=== PATIENT | female | born 2000 | race Caucasian/White ===

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

== ENCOUNTER 2020-11-27 00:44 | Observation (INO) | payer MEDICAID ==
[~2020-11-27] VITALS: Ht 160 cm; Wt 77.6 kg
[2020-11-27] MEDS ORDERED: PREN-118 PO (01:29)
[2020-11-27] MEDS ORDERED: FERR325T6 PO (01:29)
== END 2020-11-27 07:53 | disposition home or self-care (01) ==
LOC: 8 EST LDRP 00:44
PROVIDERS: ADMIT Obstetrics & Gynecology; ATTEND Obstetrics & Gynecology
DX: O26.893 Other specified pregnancy related conditions, third trimester (principal); R10.2 Pelvic and perineal pain; Z3A.39 39 weeks gestation of pregnancy
CPT/HCPCS: 59025; 76815; 76818; 99281; G0378

== ENCOUNTER 2021-06-17 16:36 | Emergency (ER) | payer MEDICAID ==
[~2021-06-17 16:36] MED LIST: FERR325T6 PO; IBUP-2030 PO; PREN-118 PO
== END 2021-06-17 17:37 | disposition left against medical advice (07) ==
LOC: ER 16:36
DX: J11.1 Influenza due to unidentified influenza virus with other respiratory manifestations (principal); Z53.21 Procedure and treatment not carried out due to patient leaving prior to being seen by health care provider

== ENCOUNTER 2024-01-24 06:40 | Emergency (ER) | payer MEDICAID ==
[~2024-01-24] VITALS: Ht 160 cm; Wt 78.0 kg
[2024-01-24 06:46] VITALS: BP 137/97; PULSE 121; RESP 18; TEMP 98.5; O2SAT 99
[2024-01-24] MEDS ORDERED: IBUPROFEN 400MG TABLET PO ONE (07:00)
== END 2024-01-24 07:59 | disposition home or self-care (01) ==
LOC: ER 06:40
DX: F10.129 Alcohol abuse with intoxication, unspecified (principal); Y90.9 Presence of alcohol in blood, level not specified
CPT/HCPCS: 99283